=== PATIENT | male | born 1965 | race Caucasian/White ===

== ENCOUNTER 2017-10-09 09:22 | Emergency (ER) | payer OTHER ==
[~2017-10-09 09:22] MED LIST: Z.0.NO CURRENT MEDS
[2017-10-09 09:41] VITALS: BP 166/94; PULSE 91; RESP 16; TEMP 98.4; O2SAT 99
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
== END 2017-10-09 13:45 | disposition left against medical advice (07) ==
LOC: NEPD 09:22
DX: R51 Headache (principal)
CPT/HCPCS: 99281